=== PATIENT | male | born 1995 | race Caucasian/White ===

== ENCOUNTER 2023-05-02 09:07 | Day surgery (SDC) | payer OTHER ==
[2023-05-02] MEDS ORDERED: LACTATED RINGERS 1,000 ML IV ONE ×2 (09:10→11:46)
[2023-05-02] MEDS ORDERED: ceFAZolin 2 GM VIAL ONE (09:14)
--- NOTE | 2023-05-02 09:52 | ANESTHESIA ---
Pre-Anesthesia VS, & Labs - Diagnosis ventral hernia - Procedure open ventral hernia repair with mesh Vital Signs: Temp Pulse Resp BP Pulse Ox O2 Flow Rate 36.1 C L 55 L 16 130/64 100 05/02/23 09:14 05/02/23 09:14 05/02/23 09:14 05/02/23 09:14 05/02/23 09:14 Height: 5 ft 10 in Weight (kg): 78 kg Body Mass Index: 24.6 BMI Classification: Normal - NPO >8 hours Home Medications and Allergies Home Medications: Ambulatory Orders No Known Home Medications 04/23/23 No Known Home Medications 04/23/23 Allergies/Adverse Reactions: Allergies Allergy/AdvReac Type Severity Reaction Status Date / Time Sulfa (Sulfonamide Allergy Hives Verified 04/23/23 15:41 Antibiotics) Anes History & Medical History - Anesthetic History Anesthesia Complications: reports: No previous complications - Medical History Cardiovascular: reports: None Pulmonary: reports: None Gastrointestinal: reports: None Urinary: reports: None Neuro: reports: None Musculoskeletal: reports: None Endocrine/Autoimmune: reports: None Skin: reports: None Smoking Status: Never smoker Psychosocial: reports: No issues indicated History of Cancer?: No - Surgical History Orthopedic: reports: Rotator cuff repair Exam General: Alert, Oriented x3, Cooperative, No acute distress Dental: WNL Mouth Openin Fingerbreadth Neck Mobility: Normal Mallampati classification: III Thyromental Distance: 4-6 cm Mental/Cognitive Status: Alert/Oriented X3, Normal for patient Plan Anesthesia Type: General Consent for Procedure(s) Verified and Reviewed: Yes Code Status: Attempt Resuscitation ASA classification: 1-Healthy patient Is this case an emergency?: No
[2023-05-02] MEDS ORDERED: NALOXONE 0.4 MG/ML VIAL IVP PRN (09:55)
[2023-05-02] MEDS ORDERED: HYDROmorphone 0.5 MG/0.5 ML SYRINGE IVP PRN ×2 (09:55→11:49)
[2023-05-02] MEDS ORDERED: ONDANSETRON 4 MG/2 ML VIAL IVP PRN ×2 (09:55→11:49)
[2023-05-02] MEDS ORDERED: fentaNYL 100 MCG/2 ML VIAL IVP PRN (09:55)
[2023-05-02] MEDS ORDERED: ATROPINE ABBOJECT 1 MG/10 ML SYRINGE IVP PRN (09:55)
[2023-05-02] MEDS ORDERED: MORPHINE 2 MG/ML CARPUJECT IVP PRN (09:55)
[2023-05-02] MEDS ORDERED: LACTATED RINGERS 1,000 ML IV SCH (10:00)
[2023-05-02] MEDS ORDERED: PROPOFOL 500 MG/50 ML 500 MG/50 ML VIAL ONE (10:06)
[2023-05-02] MEDS ORDERED: BUPIVACAINE 0.25% PF 30 ML VIAL ONE ×2 (10:10→11:06)
[2023-05-02] MEDS ORDERED: BUPIVACAINE 0.25% PF 30 ML VIAL SUBQ ONE ×2 (10:16)
--- NOTE | 2023-05-02 10:16 | HISTORY & PHYSICAL EXAMINATION ---
Chief Complaint - Chief Complaint Chief Complaint: painful lump above his umbilicus History of Present Illness - History Obtained From Records Reviewed: yes History obtained from: pt Exam Limitations: none - History of Present Illness HPI Comment/Other: small ventral hernia, possibly incarcerated just cephalad of his umbilicus History - Past Medical History Cardiovascular: reports: None Respiratory: reports: None Neuro: reports: None Endocrine/Autoimmune: reports: None GI: reports: None : reports: None HEENT: reports: Chronic vision loss, Other Psych: reports: None Musculoskeletal: reports: None Derm: reports: None MRSA Hx?: No - Past Surgical History Ortho: reports: Rotator cuff repair Meds/Allgy - Home Medications Home Medications: Ambulatory Orders Medication Instructions Recorded Confirmed Oxycodone HCl/Acetaminophen 1 tab PO Q6HR PRN #25 tablet 05/02/23 [Percocet 5-325 mg Tablet] - Allergies Allergies/Adverse Reactions: Allergies Allergy/AdvReac Type Severity Reaction Status Date / Time Sulfa (Sulfonamide Allergy Hives Verified 04/23/23 15:41 Antibiotics) Review of Systems - Other Findings Other Findings: 10 pt ros as above otherwise unremarkable Exam - Vital Signs Vital Signs: Vital Signs x48h Temp Pulse Resp BP Pulse Ox 05/02/23 09:14 36.1 C L 55 L 16 130/64 100 - Physical Exam General Appearance: positive: No acute distress, Alert Eyes Bilateral: positive: PERRL, EOMI, No scleral icterus ENT: positive: No signs of dehydration Neck: positive: No JVD, Trachea midline Respiratory: positive: Breath sounds nml Cardiovascular: positive: Regular rate & rhythm Abdomen: positive: Other (1.5 cm firm raised nodule cephalad of his umbilicus) Neurologic/Psychiatric: positive: Oriented x3 Conclusion/Plan - Problem List (1) Ventral hernia Conclusion/Plan: plan open repair with mesh. parq held and consent obtained
[2023-05-02] MEDS ORDERED: DEXAMETHASONE 4 MG/ML VIAL ONE (10:42)
[2023-05-02] MEDS ORDERED: GLYCOPYRROLATE 1 MG/5 ML VIAL ONE (10:47)
[2023-05-02] MEDS ORDERED: oxyCODONE 5 MG TABLET PO PRN (11:49)
[2023-05-02 12:10] VITALS: O2SAT 100
--- NOTE | 2023-05-02 12:28 | OPERATIVE REPORT ---
Operative Report - General Procedure Date: 05/02/23 Planned Procedure: ventral hernia repair with mesh Pre-Op Diagnosis: symptomatic ventral hernia Procedure Performed: open ventral hernia repair with mesh Post Op Diagnosis: incarcerated ventral hernia. total size 2 cm - Procedure Note Primary Surgeon: donita nieto Anesthesia Technique: General LMA, Local Pathology: benign tissue. not sent Estimated Blood Loss (mL): 2 Drain/Tube Type: Other (none) Indications: painful hernia bulge Findings: very thin fascia cephalad of the hernia 1 x 2 inch polypropylene mesh preperitoneal Complications: none - Other Other Information/Narrative: The patient was prepped identified brought to the operating room and placed in supine position. Laryngeal mask anesthesia was induced. Sequential compression devices were placed. He was prepped and draped in a sterile fashion and given preoperative antibiotics. A 1.5 cm incision was made directly over the palpable nodule just cephalad of his umbilicus. Incision was extended left lateral of the umbilicus. Dissection proceeded sharply. Umbilical skin was excised away from the fascia. Incarcerated adipose tissue measuring approximately 1.5 x 1 cm was removed. He had .5 cm fascial defect 1 cm cephalad of the umbilicus. The fascia at the umbilicus was quite thin and weak. Peritoneum was carefully released from the 2 fascial defects or areas of weakness. Small bridge of fascia was released. The preperitoneal space was then carefully developed. An area of fascia approximately 1 by nearly 3 cm cephalad of the umbilicus was very thin. 1 inch wide by 2 inch tall polypropylene mesh was placed preperitoneal and secured with approximately 9 interrupted 0 Ethibond sutures. Fascia was then closed over the mesh with additional interrupted 0 Ethibond sutures. The mesh lay in good position without tension. No apparent complications. Umbilical skin was tacked back down to fascia with interrupted 2-0 Vicryl suture. Subcutaneous tissue was closed with interrupted 2-0 Vicryl suture. Buried interrupted subdermal 3-0 Vicryl sutures were then placed. Skin was closed with a running 4-0 Monocryl subcuticular suture. Dressing was applied. He tolerated the procedure well was awakened and brought to recovery in good condition.
[2023-05-02 13:19] VITALS: BP 121/68
--- NOTE | 2023-05-02 15:22 | ANESTHESIA POST OP EVALUATION ---
Anesthesia Post Eval - Post Anesthesia Eval Vitals: Last Vital Signs Temp 36 C L 05/02/23 12:50 Pulse 42 L 05/02/23 12:50 Resp 16 05/02/23 12:50 BP 121/68 05/02/23 12:50 Pulse Ox 100 05/02/23 12:50 O2 Flow Rate CV Function Including HR & BP: Stable Pain Control: Satisfactory Nausea & Vomiting: Negative Mental Status: Baseline Respiratory Status: Airway Patent Hydration Status: Satisfactory Anesthesia Complications: None
== END 2023-05-02 09:08 | disposition home or self-care (01) ==
LOC: SDS 09:07
PROVIDERS: ATTEND Surgery
DX: K43.6 Other and unspecified ventral hernia with obstruction, without gangrene (principal)
CPT/HCPCS: 49592; C1781; J7120